=== PATIENT | male | born 1995 | race Asian ===

== ENCOUNTER 2016-08-25 20:32 | Emergency (ER) | payer BC ==
--- NOTE | 2016-08-25 21:16 | ED ---
Skin Complaint - HPI Summary HPI Summary: Pt here w/ cyst just above buttocks. Red, swollen, tender. No drainage. H/o pilonidal cyst and this feels similar but not as painful as last time. Started a couple of days ago - worsening. Denies fever, chills, N/V/D, ab pain. Last time he had this, it was drained and he had packing placed with a few changes. Healed well as far as he knows. Does not recall if a cx was taken or not but was tx'd w/ bactrim. No known h/o MRSA. Took tylenol earlier today - denies anything for pain at this time. - History of Current Complaint Chief Complaint: EDRashSkinAbscess Time Seen by Provider: 08/25/16 20:56 Stated Complaint: POSS CYST Hx Obtained From: Patient Pain Intensity: 4 - Allergy/Home Medications Allergies/Adverse Reactions: Allergies Allergy/AdvReac Type Severity Reaction Status Date / Time Penicillins [PCN] Allergy Rash And Verified 08/25/16 20:50 Itching PMH/Surg Hx/FS Hx/Imm Hx Previously Healthy: Yes Endocrine/Hematology History: Denies: Hx Anticoagulant Therapy, Hx Blood Disorders, Hx Unexplained Bleeding , Autoimmune Disease Infectious Disease History: No Infectious Disease History: Denies: Hx of Known/Suspected MRSA, Traveled Outside the [place] in Last 30 Days - Family History Known Family History: Positive: Cardiac Disease - Social History Occupation: Student Lives: With Family - roommates Alcohol Use: None Hx Substance Use: No Substance Use Type: Reports: None Hx Tobacco Use: No Smoking Status (MU): Never Smoked Tobacco Review of Systems Negative: Fever, Chills, Fatigue Negative: Chest Pain Negative: Shortness Of Breath Negative: Abdominal Pain, Vomiting, Diarrhea, Nausea Positive: no symptoms reported Negative: Arthralgia, Myalgia Skin: Other - see HPI Neurological: Negative Psychological: Normal All Other Systems Reviewed And Are Negative: Yes Physical Exam Triage Information Reviewed: Yes Vital Signs On Initial Exam: Initial Vitals Temp Pulse Resp BP Pulse Ox 99.6 F 86 16 141/82 100 08/25/16 20:40 08/25/16 20:40 08/25/16 20:40 08/25/16 20:40 08/25/16 20:40 Vital Signs Reviewed: Yes Appearance: Positive: Well-Appearing, No Pain Distress, Well-Nourished Skin: Positive: Warm, Dry - fig sized area of well defined erythema and purulent material within just superior to gluteal cleft - no drainage but it warm, TTP Head/Face: Positive: Normal Head/Face Inspection Eyes: Positive: Normal, EOMI ENT: Positive: Hearing grossly normal, Pharynx normal - mucosa moist Respiratory/Lung Sounds: Positive: Clear to Auscultation, Breath Sounds Present Cardiovascular: Positive: Normal, RRR Abdomen Description: Positive: Nontender, Soft Bowel Sounds: Positive: Present Musculoskeletal: Positive: Normal, Strength/ROM Intact Neurological: Positive: Normal, Sensory/Motor Intact, Alert, Oriented to Person Place, Time, CN Intact II-III Psychiatric: Positive: Normal Procedures - Incision and Drainage Site: superior gluteal cleft - 8cc foul smelling purulent drng/saline irrigation Anesthesia: Local - lido w/ epi Instrument(s): Scalpel - #15 Packing: Gauze Diagnostics - Vital Signs Vital Signs Temp Pulse Resp BP Pulse Ox 08/25/16 20:40 99.6 F 86 16 141/82 100 - Laboratory Lab Statement: Any lab studies that have been ordered have been reviewed, and results considered in the medical decision making process. Re-Evaluation - Re-Evaluation First Eval Change: Improved Course/Dx - Diagnoses Provider Diagnoses: Pilonidal abscess Discharge - Discharge Plan Condition: Stable Disposition: HOME Prescriptions: HYDROcodone/ACETAMIN 5-325 MG* [[place] 5-325 TAB*] 1 tab PO Q6H PRN #5 tab MDD 4 PRN Reason: Pain Sulfamethox/Trimethoprim DS* [Bactrim DS 800/160 TAB*] 1 tab PO BID #19 tab Sulfamethox/Trimethoprim DS* [Bactrim DS 800/160 TAB*] 1 tab PO BID #19 tab Patient Education Materials: Pilonidal Cyst (GEN), Acute Wound Care (ED) Referrals: [facility] SAMANTHA Reyes [Primary Care Provider] - Additional Instructions: Keep dressing in place until seen by [facility] tomorrow - call in the morning to make an appointment Take medications as directed *If you dressing becomes saturated prior to then, change and apply pressure. *If dressing continues to saturate, return to ED *If you develop fever, chills, nausea, vomiting, abdominal pain, return to ED
[2016-08-25] MEDS ORDERED: Sulfamethox/Trimethoprim DS 800/160* TAB PO ONE (21:18)
[2016-08-25] MEDS ORDERED: Ibuprofen TAB* 600 MG PO ONE (21:59)
[2016-08-25] MEDS ORDERED: Ibuprofen TAB* 600 MG ONE (21:59)
[2016-08-25 22:04] VITALS: BP 138/83
[2016-08-25] MEDS ORDERED: HYDROcodone/ACETAMIN 5-325 MG* 1 TAB PO ONE (22:09)
== END 2016-08-25 22:19 | disposition home or self-care (01) ==
LOC: ED 20:32
DX: L05.01 Pilonidal cyst with abscess (principal); Z88.0 Allergy status to penicillin
CPT/HCPCS: 87070; 87205; 87640; 87641; 99282; A9270-GY